=== PATIENT | female | born 1995 | race African-American/Black ===

== ENCOUNTER 2020-08-26 10:56 | Emergency (ER) | payer OTHER ==
[2020-08-26 11:03] VITALS: TEMP 98; BMI 26.0
[2020-08-26] MEDS ORDERED: MAG HYDROX/AL HYDROX/SIMETH -MYLANTA- ORAL SUSPENSION PO ONE (11:25)
[2020-08-26] MEDS ORDERED: SODIUM CHLORIDE 0.9% 500 ML INFUS.BAG IV ONE (11:25)
[2020-08-26] MEDS ORDERED: FAMOTIDINE 20 MG/50 ML IVPB 20 MG/50 ML MG IVPB ONE ×2 (11:25→11:33)
[2020-08-26 12:19] LABS: BASO % 0.4 % (0-2.0); EOS % 0.2 % (0-4.5); HEMATOCRIT 36.1 % (32.4-45.2); HEMOGLOBIN 12.1 GM/dL (10.7-15.3); LYMPH % 22.3 % (8-40); MCH 30.7 pg (25.7-33.7); MCHC 33.5 g/dl (32.0-36.0); MEAN CELL VOLUME 91.8 fl (80-96); MEAN PLT VOLUME 10.4 fl (7.5-11.1); MONO % 6.1 % (3.8-10.2); PLATELET COUNT 240 K/MM3 (134-434); RBC 3.94 M/mm3 (3.60-5.2); RDW 14.5 % (11.6-15.6); WHITE BLOOD COUNT 8.9 K/mm3 (4.0-10.0)
[2020-08-26 12:31] LABS: EPI CELLS 33 /uL (0-25.1); HYALINE CASTS 8 /uL (0-3.1); PH,URINE 5.5 (5.0-8.0); URINE APPEARANCE CLOUDY; URINE BILIRUBIN 1+ (NEGATIVE); URINE COLOR RED; URINE GLUCOSE (UA) NEGATIVE (NEGATIVE); URINE KETONE TRACE (NEGATIVE); URINE LEUK ESTERASE 2+ (NEGATIVE); URINE NITRITE POSITIVE (NEGATIVE); URINE PROTEIN 3+ (NEGATIVE); URINE RBC 2695 /uL (0-23.9); URINE WBC 554 /uL (0-25.8)
[2020-08-26 12:33] LABS: HCG,QUALITATIVE URINE Negative
[2020-08-26 12:56] LABS: URINE BACTERIA 800 /uL (0-1359)
[2020-08-26] MEDS ORDERED: cefTRIAXone SODIUM 1 GM VIAL ONE (12:57)
[2020-08-26 13:05] LABS: ALBUMIN 3.9 g/dl (3.4-5.0); CALCIUM 8.6 mg/dL (8.5-10.1)
[2020-08-26 13:07] LABS: CREATININE 0.6 mg/dL (0.55-1.3)
[2020-08-26 13:11] LABS: BILIRUBIN,TOTAL 1.2 mg/dL (0.2-1)
[2020-08-26] MEDS ORDERED: ACETAMINOPHEN 1000 MG/100 ML VIAL (NON FORMULARY) IVPB ONE (14:11)
[2020-08-26] MEDS ORDERED: ACETAMINOPHEN INJECTION 100 ML IVPB ONE (14:12)
[2020-08-26 14:35] VITALS: BP 113/62; PULSE 62
== END 2020-08-26 14:44 | disposition home or self-care (01) ==
LOC: JER 10:56
PROC: 3E0333Z Introduction of Anti-inflammatory into Peripheral Vein, Percutaneous Approach (ICD-10-PCS; principal; 2020-08-26)
PROC: 3E03329 Introduction of Other Anti-infective into Peripheral Vein, Percutaneous Approach (ICD-10-PCS; 2020-08-26)
PROC: 3E033GC Introduction of Other Therapeutic Substance into Peripheral Vein, Percutaneous Approach (ICD-10-PCS; 2020-08-26)
DX: N30.01 Acute cystitis with hematuria (principal)
CPT/HCPCS: 36415; 80053; 81003; 83690; 84703; 85025; 87086; 99284-25; J0131

== ENCOUNTER 2022-12-06 14:43 | Observation (INO) | payer OTHER ==
[2022-12-06 15:03] VITALS: BMI 22.6
[2022-12-06] MEDS ORDERED: morphine CARPU-JECT 4 MG/1 ML DISP.SYRIN IVPUSH ONE ×2 (16:33→17:47)
[2022-12-06] MEDS ORDERED: ONDANSETRON 4 MG/2 ML VIAL IVPUSH ONE (16:33)
[2022-12-06] MEDS ORDERED: ACETAMINOPHEN 1000 MG/100 ML BAG IVPB ONE (16:34)
[2022-12-06] MEDS ORDERED: morphine SULFATE 4 MG/ML VIAL ONE ×2 (16:37→17:36)
[2022-12-06] MEDS ORDERED: ACETAMINOPHEN INJECTION 100 ML IVPB ONE (16:37)
[2022-12-06] MEDS ORDERED: ONDANSETRON 4 MG/2 ML VIAL ONE (16:37)
[2022-12-06 17:34] LABS: POTASSIUM 3.9 mmol/L (3.5-5.1)
[2022-12-06 17:37] LABS: ALBUMIN 4.1 g/dl (3.4-5.0); BLOOD UREA NITROGEN 5.4 mg/dL (7-18); CALCIUM 9.3 mg/dL (8.5-10.1)
[2022-12-06 17:40] LABS: CREATININE 0.7 mg/dL (0.55-1.3); INR 1.03 (0.83-1.09); PROTHROMBIN TIME (PATIENT) 11.9 SEC (9.7-13.0)
[2022-12-06 17:41] LABS: BILIRUBIN,TOTAL 0.8 mg/dL (0.2-1); TOT PROT 7.6 g/dl (6.4-8.2)
[2022-12-06 17:42] LABS: ACTIVATED PTT 26.8 SECONDS (25.2-36.5)
[2022-12-06 18:00] LABS: BASO % 0.3 % (0-2.0); EOS % 0.3 % (0-4.5); HEMATOCRIT 38.4 % (32.4-45.2); HEMOGLOBIN 12.6 GM/dL (10.7-15.3); LYMPH % 13.7 % (8-40); MCH 29.8 pg (25.7-33.7); MCHC 32.7 g/dl (32.0-36.0); MEAN CELL VOLUME 91.2 fl (80-96); MEAN PLT VOLUME 10.7 fl (7.5-11.1); MONO % 6.5 % (3.8-10.2); NEUT % 79.2 % (42.8-82.8); PLATELET COUNT 302 10^3/uL (134-434); RDW 14.3 % (11.6-15.6); WHITE BLOOD COUNT 11.6 K/mm3 (4.0-10.0)
[2022-12-06] MEDS ORDERED: SODIUM CHLORIDE 0.9% 500 ML INFUS.BAG IV ONE (18:52)
[2022-12-06] MEDS ORDERED: DICYCLOMINE HCL 20 MG/2 ML AMPUL IM ONE (20:30)
[2022-12-06] MEDS ORDERED: SENNOSIDES 8.6MG TABLET (FP) PO ONE ×2 (21:09→21:16)
[2022-12-07] MEDS ORDERED: DICYCLOMINE HCL 10 MG CAPSULE PO PRN (00:28)
[2022-12-07] MEDS ORDERED: DICYCLOMINE HCL 10 MG CAPSULE ONE (01:23)
[2022-12-07 01:51] LABS: PHENCYCLIDINE,URINE NEGATIVE (NEGATIVE); URINE BARBITURATES NEGATIVE (NEGATIVE)
[2022-12-07 01:52] LABS: COCAINE, UR NEGATIVE (NEGATIVE)
[2022-12-07 02:10] LABS: METHADONE, UR NEGATIVE (NEGATIVE); OPIATES, URI POSITIVE (NEGATIVE); URINE AMPHETAMINES POSITIVE (NEGATIVE); URINE BENZODIAZEPINES NEGATIVE (NEGATIVE)
[2022-12-07] MEDS ORDERED: ACETAMINOPHEN 325 MG TABLET (FP) PO PRN (02:16)
[2022-12-07] MEDS ORDERED: ONDANSETRON 4 MG/2 ML VIAL IVPUSH PRN (02:16)
[2022-12-07] MEDS ORDERED: SENNOSIDES 8.6MG TABLET (FP) PO PRN (02:16)
[2022-12-07 02:18] LABS: URINE APPEARANCE CLEAR; URINE BILIRUBIN NEGATIVE (NEGATIVE); URINE COLOR YELLOW; URINE GLUCOSE (UA) NEGATIVE (NEGATIVE); URINE KETONE 1+ (NEGATIVE); URINE LEUK ESTERASE NEGATIVE (NEGATIVE); URINE NITRITE NEGATIVE (NEGATIVE); URINE PROTEIN TRACE (NEGATIVE); URINE UROBILINOGEN 0.2 mg/dL (0.2-1.0)
[2022-12-07] MEDS ORDERED: SODIUM CHLORIDE 1,000 ML IV SCH (02:30)
[2022-12-07] MEDS ORDERED: morphine SULFATE 4 MG/ML VIAL IVPUSH PRN (05:00)
[2022-12-07 07:58] VITALS: BP 116/69; PULSE 65; RESP 16; TEMP 98.5
[2022-12-07] MEDS ORDERED: ENOXAPARIN NA (PORCINE) 40 MG/0.4 ML DISP.SYRIN SQ SCH (10:00)
[2022-12-07] MEDS ORDERED: PANTOPRAZOLE 20 MG TABLET PO SCH (10:00)
[2022-12-08 11:02] LABS: HIV INTERPRETATION NEGATIVE (NEGATIVE)
== END 2022-12-07 08:38 | disposition home or self-care (01) ==
LOC: JER 14:43 → JERBED 21:10
PROVIDERS: ADMIT Internal Medicine; ATTEND Internal Medicine
PROC: 3E033NZ Introduction of Analgesics, Hypnotics, Sedatives into Peripheral Vein, Percutaneous Approach (ICD-10-PCS; principal; 2022-12-06)
PROC: 3E023GC Introduction of Other Therapeutic Substance into Muscle, Percutaneous Approach (ICD-10-PCS; 2022-12-06)
PROC: 3E033NZ Introduction of Analgesics, Hypnotics, Sedatives into Peripheral Vein, Percutaneous Approach (ICD-10-PCS; 2022-12-06)
PROC: 3E0337Z Introduction of Electrolytic and Water Balance Substance into Peripheral Vein, Percutaneous Approach (ICD-10-PCS; 2022-12-06)
DX: K52.9 Noninfective gastroenteritis and colitis, unspecified (principal); F12.10 Cannabis abuse, uncomplicated; D72.829 Elevated white blood cell count, unspecified; F32.A Depression, unspecified; Z87.42 Personal history of other diseases of the female genital tract; Z87.19 Personal history of other diseases of the digestive system
CPT/HCPCS: 36415; 71045-TC-FY; 74177-TC; 80053; 80307; 81003; 84703; 85025; 85610; 85730; 86780; 87086; 87389; 87491; 87591; 93005; 93010; 96361; 96372; 96374; 96375; 96376; 99285-25; G0378

== ENCOUNTER 2022-12-07 21:43 | Emergency (ER) | payer OTHER ==
[2022-12-07 21:48] VITALS: BP 129/97; PULSE 76; RESP 19; TEMP 99.1; BMI 22.6
[2022-12-07] MEDS ORDERED: ONDANSETRON 4 MG/2 ML VIAL IVPUSH ONE ×2 (23:01→23:06)
[2022-12-07] MEDS ORDERED: DICYCLOMINE HCL 20 MG/2 ML AMPUL IM ONE (23:01)
[2022-12-07] MEDS ORDERED: SODIUM CHLORIDE 0.9% 500 ML INFUS.BAG IV ONE (23:01)
[2022-12-07] MEDS ORDERED: ACETAMINOPHEN 1000 MG/100 ML BAG IVPB ONE (23:01)
[2022-12-07] MEDS ORDERED: FAMOTIDINE 20 MG/50 ML IVPB 20 MG/50 ML MG IVPB ONE ×2 (23:01→23:16)
[2022-12-07] MEDS ORDERED: ONDANSETRON 4 MG/2 ML VIAL ONE (23:16)
[2022-12-07] MEDS ORDERED: ACETAMINOPHEN INJECTION 100 ML IVPB ONE (23:16)
[2022-12-08] MEDS ORDERED: HALOPERIDOL LACTATE 5 MG/ML IM ONE ×2 (00:11)
[2022-12-08] MEDS ORDERED: diphenhydrAMINE HCL 50 MG CAPSULE PO ONE (00:41)
[2022-12-08] MEDS ORDERED: diphenhydrAMINE HCL 25 MG CAPSULE (FP) PO ONE (00:52)
== END 2022-12-08 02:08 | disposition home or self-care (01) ==
LOC: JER 21:43
PROC: 3E023GC Introduction of Other Therapeutic Substance into Muscle, Percutaneous Approach (ICD-10-PCS; principal; 2022-12-07)
PROC: 3E023GC Introduction of Other Therapeutic Substance into Muscle, Percutaneous Approach (ICD-10-PCS; 2022-12-07)
DX: R10.13 Epigastric pain (principal); R11.2 Nausea with vomiting, unspecified; F12.10 Cannabis abuse, uncomplicated
CPT/HCPCS: 99284-25

== ENCOUNTER 2022-12-08 08:44 | Emergency (ER) | payer OTHER ==
[2022-12-08] MEDS ORDERED: HALOPERIDOL LACTATE 5 MG/ML IM ONE ×4 (09:02→11:18)
[2022-12-08] MEDS ORDERED: MAG HYDROX/AL HYDROX/SIMETH 30 ML UNIT-DOSE CUP PO ONE (09:03)
[2022-12-08] MEDS ORDERED: MAG HYDROX/AL HYDROX/SIMETH 30 ML UNIT-DOSE CUP ONE (09:06)
[2022-12-08 09:18] VITALS: RESP 18; BMI 22.6
[2022-12-08] MEDS ORDERED: morphine CARPU-JECT 4 MG/1 ML DISP.SYRIN IVPUSH ONE (09:57)
[2022-12-08] MEDS ORDERED: morphine SULFATE 4 MG/ML VIAL ONE (09:59)
[2022-12-08] MEDS ORDERED: SODIUM CHLORIDE 0.9% 500 ML INFUS.BAG IV ONE (10:43)
[2022-12-08] MEDS ORDERED: ACETAMINOPHEN 1000 MG/100 ML BAG IVPB ONE (10:43)
[2022-12-08] MEDS ORDERED: ACETAMINOPHEN INJECTION 100 ML IVPB ONE (11:18)
[2022-12-08 11:32] VITALS: BP 126/81; PULSE 80; TEMP 98.6
[2022-12-08 11:41] LABS: HEMATOCRIT 38.1 % (32.4-45.2); HEMOGLOBIN 12.2 G/dL (10.7-15.3); MCH 30.5 pg (25.7-33.7); MCHC 31.9 g/dl (32.0-36.0); MEAN CELL VOLUME 95.5 fl (80-96); MEAN PLT VOLUME 9.5 fl (7.5-11.1); PLATELET COUNT 278.9 10^3/uL (134-434); RBC 3.99 10^6/uL (3.60-5.2); RDW 14.4 % (11.6-15.6); WHITE BLOOD COUNT 13.1 10^3/uL (4.0-10.8)
[2022-12-08 11:42] LABS: ALBUMIN 4.3 g/dl (3.4-5.0); BLOOD UREA NITROGEN 6.1 mg/dl (7-18); CALCIUM 9.6 mg/dl (8.5-10.1); CREATININE 0.7 mg/dl (0.6-1.3); POTASSIUM 3.8 mmol/L (3.5-5.1); SGOT/AST 24.9 U/L (15-37); TOT PROT 6.8 g/dl (6.4-8.2)
[2022-12-08 14:07] LABS: BILIRUBIN,TOTAL 0.6 mg/dL (0.2-1)
[2022-12-08 14:46] LABS: PLATELET ESTIMATE ADEQUATE
== END 2022-12-08 15:00 | disposition home or self-care (01) ==
LOC: FER 08:44
PROC: 3E033NZ Introduction of Analgesics, Hypnotics, Sedatives into Peripheral Vein, Percutaneous Approach (ICD-10-PCS; principal; 2022-12-08)
PROC: 3E033GC Introduction of Other Therapeutic Substance into Peripheral Vein, Percutaneous Approach (ICD-10-PCS; 2022-12-08)
PROC: 3E023GC Introduction of Other Therapeutic Substance into Muscle, Percutaneous Approach (ICD-10-PCS; 2022-12-08)
PROC: 3E023GC Introduction of Other Therapeutic Substance into Muscle, Percutaneous Approach (ICD-10-PCS; 2022-12-08)
DX: R10.9 Unspecified abdominal pain (principal); R11.10 Vomiting, unspecified; F12.10 Cannabis abuse, uncomplicated; K59.00 Constipation, unspecified; Z20.822 Contact with and (suspected) exposure to COVID-19
CPT/HCPCS: 0241U-QW; 36415; 71045-TC-FY; 76705-TC; 76830-TC; 80053; 83605; 83690; 85027; 99285-25

== ENCOUNTER 2023-04-06 23:12 | Emergency (ER) | payer OTHER ==
[2023-04-06] MEDS ORDERED: SODIUM CHLORIDE 1,000 ML IV STA (23:16)
[2023-04-06] MEDS ORDERED: ONDANSETRON 4 MG/2 ML VIAL IVPB ONE (23:16)
[2023-04-06] MEDS ORDERED: FAMOTIDINE 20 MG/50 ML IVPB 20 MG/50 ML MG IVPB ONE ×2 (23:16→23:36)
[2023-04-06] MEDS ORDERED: ACETAMINOPHEN 1000 MG/100 ML BAG IVPB ONE (23:16)
[2023-04-06 23:21] VITALS: BP 123/72; PULSE 70; RESP 18; TEMP 98.2; BMI 23.1
[2023-04-06] MEDS ORDERED: ONDANSETRON 4 MG/2 ML VIAL ONE (23:35)
[2023-04-06] MEDS ORDERED: ACETAMINOPHEN INJECTION 100 ML IVPB ONE (23:36)
[2023-04-07 00:44] LABS: BASO % 0.1 % (0-2.0); EOS % 0.6 % (0-4.5); HEMATOCRIT 40.5 % (32.4-45.2); HEMOGLOBIN 13.1 GM/dL (10.7-15.3); LYMPH % 8.3 % (8-40); MCH 29.7 pg (25.7-33.7); MCHC 32.3 g/dl (32.0-36.0); MEAN PLT VOLUME 10.9 fl (7.5-11.1); MONO % 4.1 % (3.8-10.2); NEUT % 86.9 % (42.8-82.8); PLATELET COUNT 243 10^3/uL (134-434); RDW 15.8 % (11.6-15.6); WHITE BLOOD COUNT 9.7 K/mm3 (4.0-10.0)
[2023-04-07 01:17] LABS: ALBUMIN 4.1 g/dl (3.4-5.0); BILIRUBIN,TOTAL 2.3 mg/dL (0.2-1); BLOOD UREA NITROGEN 9.5 mg/dL (7-18); CREATININE 0.7 mg/dL (0.55-1.3); POTASSIUM 3.9 mmol/L (3.5-5.1); TOT PROT 7.8 g/dl (6.4-8.2)
== END 2023-04-07 01:25 | disposition home or self-care (01) ==
LOC: FER 23:12
PROC: 3E033GC Introduction of Other Therapeutic Substance into Peripheral Vein, Percutaneous Approach (ICD-10-PCS; principal; 2023-04-06)
PROC: 3E033GC Introduction of Other Therapeutic Substance into Peripheral Vein, Percutaneous Approach (ICD-10-PCS; 2023-04-06)
PROC: 3E033NZ Introduction of Analgesics, Hypnotics, Sedatives into Peripheral Vein, Percutaneous Approach (ICD-10-PCS; 2023-04-07)
DX: R11.2 Nausea with vomiting, unspecified (principal); R10.9 Unspecified abdominal pain; K52.9 Noninfective gastroenteritis and colitis, unspecified
CPT/HCPCS: 36415; 80053; 85025; 99284-25